=== PATIENT | female | born 1990 | race African-American/Black ===

== ENCOUNTER 2017-03-08 21:43 | Emergency (ER) | payer OTHER ==
[~2017-03-08] VITALS: Ht 149.9 cm; Wt 67.0 kg
[~2017-03-08 21:43] MED LIST: AMOXIL400 MG/5 M OR; AMOXIL500 MG OR; AZITHROMYCIN500 MG PO; CONCEPT OB PO; CORTISPORIN OTI10 ML AD; DEPO-PROVER150 MG/ML IM; FERROUS SULF325 M1 PO; FLUZONE SPLT1 M1 IM; METROGEL VAG0.75 % VA; PRENATABS OR; PRENATAL DHA OR; THERAFL1 OR; TUBERSOL5 MG/0.1 M ID; TYLENOL500 MG OR
[2017-03-08] MEDS ORDERED: AMOXICILLIN500 MG PO (22:07)
[2017-03-08 22:35] VITALS: BP 107/68
== END 2017-03-08 22:37 | disposition home or self-care (01) | DRG 153 ==
LOC: ED 21:43
DX: J02.9 Acute pharyngitis, unspecified (principal)

== ENCOUNTER 2021-02-05 04:55 | Emergency (ER) | payer OTHER ==
[~2021-02-05 04:55] MED LIST changes: +AMOXICILLIN500 MG PO
[2021-02-05] MEDS ORDERED: CORTISPORIN OTI10 M2 AS (05:24)
[2021-02-05 05:27] VITALS: BP 106/60
== END 2021-02-05 05:31 | disposition home or self-care (01) | DRG 156 ==
LOC: ED 04:55
DX: H60.92 Unspecified otitis externa, left ear (principal)

== ENCOUNTER 2021-07-28 16:00 | Emergency (ER) | payer OTHER ==
[~2021-07-28] VITALS: Ht 149.9 cm; Wt 63.0 kg
[~2021-07-28 16:00] MED LIST changes: +CORTISPORIN OTI10 M2 AS
[2021-07-28 17:25] VITALS: BP 121/70
== END 2021-07-28 16:45 | disposition left against medical advice (07) | DRG 833 ==
LOC: ED 16:00
DX: O26.893 Other specified pregnancy related conditions, third trimester (principal); R10.30 Lower abdominal pain, unspecified; Z3A.35 35 weeks gestation of pregnancy; Z91.19 Patient's noncompliance with other medical treatment and regimen

== ENCOUNTER 2023-06-15 12:45 | Emergency (ER) | payer OTHER ==
[~2023-06-15] VITALS: Ht 149.9 cm; Wt 65.0 kg
[2023-06-15] MEDS ORDERED: TAM75CAP PO (13:42)
[2023-06-15 14:01] VITALS: BP 137/86
== END 2023-06-15 14:04 | disposition home or self-care (01) | DRG 153 ==
LOC: ED 12:45
DX: J11.1 Influenza due to unidentified influenza virus with other respiratory manifestations (principal); Z20.822 Contact with and (suspected) exposure to COVID-19